=== PATIENT | male | born 1945 | race Asian ===

== ENCOUNTER 2023-11-05 09:38 | Emergency (ER) | payer BC ==
[~2023-11-05] VITALS: Ht 157.5 cm; Wt 69.9 kg
[2023-11-05 09:38] VITALS: BP_SYST 163; PULSE 112; RESP 18; TEMP 97.9; O2SAT 96
[2023-11-05 10:58] LABS: BILIRUBIN,URINE NEGATIVE (NEGATIVE); BLOOD, URINE 3+ (NEGATIVE); CLARITY/URINE SL CLOUDY (CLEAR); COLOR,URINE YELLOW (YELLOW); GLUCOSE,URINE NEGATIVE (NEGATIVE); KETONES,URINE NEGATIVE (NEGATIVE); LEUKOCYTE ESTERASE ,URINE NEGATIVE (NEGATIVE); NITRITE, URINE NEGATIVE (NEGATIVE); PROTEIN URINE 2+ (NEGATIVE); UROBILINOGEN,URINE 0.2 (0.2-1.0)
[2023-11-05 11:06] LABS: BACTERIA,URINE None Seen /HPF (None Seen); RBC,URINE 50-80 /HPF (0-3); WBC,URINE NONE SEEN /HPF (0-3)
[2023-11-05 11:19] VITALS: BP_SYST 163; PULSE 112; RESP 18; TEMP 97.9; O2SAT 96
== END 2023-11-05 11:22 | disposition home or self-care (01) ==
LOC: SED 09:38
DX: R33.8 Other retention of urine (principal); R10.2 Pelvic and perineal pain; I10 Essential (primary) hypertension
CPT/HCPCS: 81000; 81001; 81015; 99283